=== PATIENT | male | born 1970 | race Caucasian/White ===

== ENCOUNTER 2021-10-22 06:23 | Observation (INO) ==
[~2021-10-22 06:23] MED LIST: *HR* Methadone 10 MG TABLET PO ONE; Acetaminophen IV 1,000 MG/100 ML BAG IVPB ONE; Famotidine 20 MG/2 ML VIAL IVP ONE
[2021-10-22] MEDS ORDERED: *HR* FentaNYL (PF) 100 MCG/2 ML VIAL ONE (06:32)
[2021-10-22] MEDS ORDERED: CeFAZolin Syr 2,000MG/20 ML 2,000 MG/20 ML SYRINGE IVPB ONE (06:32)
[2021-10-22] MEDS ORDERED: *HR* Propofol 200 MG/20 ML VIAL IVP ONE (06:32)
[2021-10-22] MEDS ORDERED: Ringers Solution, Lactated 1,000 ML IVC SCH (06:45)
[2021-10-22] MEDS ORDERED: *HR* Midazolam HCl 2 MG/2 ML VIAL ONE (06:50)
[2021-10-22] MEDS ORDERED: Lidocaine -MPF 2% 5 ML VIAL ONE (06:51)
[2021-10-22] MEDS ORDERED: Lidocaine -MPF 4% 5 ML AMPUL ONE (06:51)
[2021-10-22] MEDS ORDERED: Ondansetron 4 MG/2 ML VIAL ONE (06:51)
[2021-10-22] MEDS ORDERED: *HR* Succinylcholine 200 MG/10 ML VIAL IVP ONE (06:51)
[2021-10-22] MEDS ORDERED: *HR* Methadone 5 MG TABLET PO ONE (07:00)
[2021-10-22] MEDS ORDERED: Vancomycin 1,000 MG VIAL ONE (07:06)
[2021-10-22] MEDS ORDERED: *HR* Remifentanil 2 MG VIAL IVP ONE (07:11)
[2021-10-22] MEDS ORDERED: Polymyxin B Sulfate 500,000 UNIT, Sodium Chloride IRRigation 1,000 ML IR ONE (07:45)
[2021-10-22] MEDS ORDERED: EPHEDrine 50 MG/ML VIAL ONE (08:38)
[2021-10-22] MEDS ORDERED: Ondansetron 4 MG/2 ML VIAL IVP PRN ×2 (10:38→12:55)
[2021-10-22] MEDS ORDERED: *HR* HYDROMORPHONE 2 MG/ML VIAL ONE (11:22)
[2021-10-22] MEDS: *HR* HYDROmorphone PF 0.5 MG/0.5 ML SYRINGE IVP PRN ×3 (11:47→12:05)
[2021-10-22] MEDS ORDERED: Acetaminophen 325 MG TABLET PO PRN (12:55)
[2021-10-22] MEDS ORDERED: *HR* HYDROcodone/Acet 5/325 mg TABLET PO PRN (12:55)
[2021-10-22] MEDS ORDERED: Naloxone 0.4 MG/ML INJ IVP PRN (12:55)
[2021-10-22] MEDS: Gabapentin 300 MG CAPSULE PO SCH ×2 (14:01→19:48)
[2021-10-22] MEDS: Ringers Solution, Lactated 1,000 ML IVC SCH (14:02)
[2021-10-22] MEDS: cloNIDine HCL 0.1 MG TABLET PO SCH ×2 (14:02→19:47)
[2021-10-22] MEDS: *HR* OxyCODONE Immed Rel 5 MG TABLET PO PRN ×3 (16:50→23:39)
[2021-10-22] MEDS: CeFAZolin 2 GM/120 ML BAG IVPB SCH ×2 (17:05→23:39)
[2021-10-22] MEDS: Aspirin Enteric Coated 81 MG Tablet PO SCH (21:23)
[2021-10-23] MEDS: cloNIDine HCL 0.1 MG TABLET PO SCH ×3 (05:29→21:35)
[2021-10-23] MEDS: *HR* OxyCODONE Immed Rel 5 MG TABLET PO PRN ×3 (05:29→17:13)
[2021-10-23] MEDS: Losartan/HCTZ 50-12.5 TABLET PO SCH (08:35)
[2021-10-23] MEDS: Ringers Solution, Lactated 1,000 ML IVC SCH ×2 (08:44→15:06)
[2021-10-23] MEDS ORDERED: FLUoxetine 20 MG CAPSULE PO SCH (09:00)
[2021-10-23] MEDS ORDERED: Metoprolol XL (24 HR) Succ 50 MG TAB.ER.24H PO SCH (09:00)
[2021-10-23] MEDS: polyethylene glycoL 3350 17 GM POWD.PACK PO SCH (18:21)
[2021-10-23] MEDS: Aspirin Enteric Coated 81 MG Tablet PO SCH (21:35)
[2021-10-24] MEDS: *HR* OxyCODONE Immed Rel 5 MG TABLET PO PRN (00:48)
[2021-10-24] MEDS: cloNIDine HCL 0.1 MG TABLET PO SCH (04:51)
[2021-10-24 06:22] VITALS: PULSE 98; TEMP 98.3; O2SAT 94
[2021-10-24] MEDS: Losartan/HCTZ 50-12.5 TABLET PO SCH (08:46)
[2021-10-24] MEDS: polyethylene glycoL 3350 17 GM POWD.PACK PO SCH (08:47)
[2021-10-24] MEDS: Ringers Solution, Lactated 1,000 ML IVC SCH (08:47)
[2021-10-24 08:52] VITALS: BP 117/71
== END 2021-10-24 10:54 | disposition home or self-care (01) ==
LOC: 4WAOSI 06:23 → SDCAOSI 06:23 → 4WAOSI 12:40
PROVIDERS: ADMIT Orthopaedic Surgery Orthopaedic Surgery of the Spine; ATTEND Orthopaedic Surgery Orthopaedic Surgery of the Spine